=== PATIENT | female | born 1970 | race Caucasian/White ===

== ENCOUNTER 2022-05-26 18:09 | Emergency (ER) | payer OTHER ==
[~2022-05-26] VITALS: Ht 160 cm; Wt 73.0 kg
[2022-05-26 18:19] VITALS: BP 115/73
[2022-05-26] MEDS ORDERED: ACETAMINOPHEN 325MG TABLET PO ONE (21:30)
[2022-05-26] MEDS ORDERED: IBUP-2029 MT (23:22)
== END 2022-05-26 23:44 | disposition home or self-care (01) ==
LOC: ER 18:09
DX: S60.211A Contusion of right wrist, initial encounter (principal); X58.XXXA Exposure to other specified factors, initial encounter; Y93.89 Activity, other specified; Y92.89 Other specified places as the place of occurrence of the external cause; Y99.8 Other external cause status
CPT/HCPCS: 73130; 99283